=== PATIENT | female | born 1965 | race Caucasian/White ===

== ENCOUNTER 2016-08-09 15:25 | Emergency (ER) | payer BC ==
[2016-08-09] MEDS ORDERED: Diph,Pert(Acell),Tet Vac 0.5 ML SYR IM ONE (15:41)
--- NOTE | 2016-08-09 16:10 | Emergency Department Record ---
History of Present Illness - General Chief Complaint: Laceration(s) Stated Complaint: LAC ABOVE L EYE Time Seen by Provider: 08/09/16 15:38 Source: Patient, Family Mode of Arrival: Ambulatory Limitations: No limitations - History of Present Illness Initial Commments: 51 yo female presents with a laceration of the left eyebrow. She was taking the pool cover off and the bungee snapped and hit her over the left eyebrow. No eye injury. No headache. No LOC. No dizziness. Last tetanus unknown. Onset/Timin -: Minutes(s) Place: Home Context: Accidental Associated Symptoms: None - [place] Coma Scale Eye Response: (4) Open spontaneously Motor Response: (6) Obeys commands Verbal Response: (5) Oriented [place] Total: 15 - Related Data Hx Tetanus Toxoid Vaccination: Yes Patient Tetanus UTD (within 5 yrs): No Home Medications Medication Instructions Recorded Confirmed Last Taken Aspirin Chewable 81 mg PO DAILY 07/02/15 08/09/16 08/08/16 Cetirizine HCl 10 mg PO DAILY 07/02/15 08/09/16 08/08/16 Diltiazem HCl [Cardizem] 120 mg PO DAILY 07/02/15 08/09/16 08/08/16 Simvastatin [Zocor] 20 mg PO QHS 07/02/15 08/09/16 08/08/16 Nitroglycerin [Nitrostat] 0.3 mg SL ASDIR 08/09/16 08/09/16 08/02/16 Allergies Allergy/AdvReac Type Severity Reaction Status Date / Time isosorbide mononitrate Allergy ALTERED Verified 08/09/16 15:36 [From dur] MENTAL STATUS Travel Screening - Travel/Exposure Within Last 30 Days Have you traveled within the last 30 days?: No - Travel/Exposure Within Last Year Have you traveled outside the [place] in the last year?: No - Additonal Travel Details Have you been exposed to anyone with a communicable illness?: No - Travel Symptoms Symptom Screening: None Review of Systems Constitutional: Denies: Chills, Fever, Malaise, Weakness Eyes: Denies: Eye discharge, Eye pain, Photophobia, Vision change ENT: Denies: Congestion, Throat pain Respiratory: Denies: Cough Cardiovascular: Denies: Chest pain, Palpitations, Syncope Endocrine: Denies: Fatigue Gastrointestinal: Denies: Diarrhea, Nausea, Vomiting Genitourinary: Denies: Dysuria Musculoskeletal: Denies: Arthralgia, Back pain, Myalgia, Neck pain Skin: Denies: Bruising, Change in color, Rash Neurological: Reports: Headache. 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 - NEURO Hx Neuro Disorders: No - GI Hx GI Disorders: No - Hx Genitourinary Disorders: Yes Hx Kidney Stones: Yes - ENDOCRINE Hx Endocrine Disorders: No - MUSCULOSKELETAL Hx Musculoskeletal Disorders: Yes Comment:: scoliosis - PSYCH Hx Psych Problems: No - HEMATOLOGY/ONCOLOGY Hx Hematology/Oncology Disorders: No Family Medical History Any Significant Family History?: No Hx Cancer: Mother Hx Dementia: Father Hx Diabetes: Father Hx Heart Disease: Father Hx HTN: Mother Physical Exam - General General Appearance: Alert, Oriented x3, Cooperative, No acute distress Limitations: No limitations - Head Head exam: Normocephalic. negative: Atraumatic, Normal inspection Head exam detail: Laceration Image of Face/Head: 1 - 1cm liniear clean laceration of the eye brow - Eye Eye exam: Normal appearance, PERRL, EOMI. negative: Conjunctival injection, Periorbital swelling, Periorbital tenderness Pupils: Normal accommodation. negative: Irregular, Unequal - ENT ENT exam: Normal exam Ear exam: Normal external inspection Nasal Exam: Normal inspection Mouth exam: Normal external inspection Teeth exam: Normal inspection Throat exam: Normal inspection - Neck Neck exam: Normal inspection - Rectal Rectal exam: Deferred - exam: Deferred - Extremities Extremities exam: Normal inspection - Back Back exam: Reports: Full ROM - Neurological Neurological exam: Alert, Normal gait, Oriented X3. negative: CN II-XII intact - Psychiatric Psychiatric exam: Normal affect, Normal mood - Skin Skin exam: Dry, Intact, Normal color, Warm Course Vital Signs 08/09/16 15:28 Temperature 98.6 F Pulse Rate 87 Respiratory 16 Rate Blood Pressure 143/97 Pulse Ox 98 - Reevaluation(s) Reevaluation #1: Procedure Laceration Repair Betadine Prep NS irrigation Inspection with bloodless field. No FB Prolene 6-0 #4 Tolerated well. Good wound approximation We discussed home care and reasons to return for a recheck Suture removal in 5 days. 08/09/16 16:13 Disposition Disposition: Discharge Clinical Impression: Eyebrow laceration Qualifiers: Encounter type: initial encounter Laterality: left Qualified Code(s): S01.112A - Laceration without foreign body of left eyelid and periocular area, initial encounter Disposition: Home, Self-Care Condition: (1) Good Instructions: Laceration (ED) Additional Instructions: Return in 5 days for suture removal Return if you have pain, vision changes, redness, pus or concerns Forms: Patient Portal Access Time of Disposition: 16:11
== END 2016-08-09 16:17 | disposition home or self-care (01) ==
LOC: ER 15:25
DX: S01.112A Laceration without foreign body of left eyelid and periocular area, initial encounter (principal); W22.8XXA Striking against or struck by other objects, initial encounter; Y92.007 Garden or yard of unspecified non-institutional (private) residence as the place of occurrence of the external cause
CPT/HCPCS: 12011; 90715; 96372; 99283

== ENCOUNTER 2016-08-14 10:04 | Emergency (ER) | payer BC ==
--- NOTE | 2016-08-14 10:18 | Emergency Department Record ---
History of Present Illness - General Chief Complaint: Suture removal Stated Complaint: STITCHES REMOVED Time Seen by Provider: 08/14/16 10:13 - History of Present Illness Initial Comments: The patient is here for suture removal from left eyebrow which were placed 6 days ago on 08-09-16. She has had no problems. She denies concussion symptoms. MD Complaint: Suture/staple removal - Related Data Home Medications Medication Instructions Recorded Confirmed Last Taken Aspirin Chewable 81 mg PO DAILY 07/02/15 08/09/16 08/08/16 Cetirizine HCl 10 mg PO DAILY 07/02/15 08/09/16 08/08/16 Diltiazem HCl [Cardizem] 120 mg PO DAILY 07/02/15 08/09/16 08/08/16 Simvastatin [Zocor] 20 mg PO QHS 07/02/15 08/09/16 08/08/16 Nitroglycerin [Nitrostat] 0.3 mg SL ASDIR 08/09/16 08/09/16 08/02/16 Allergies Allergy/AdvReac Type Severity Reaction Status Date / Time isosorbide mononitrate Allergy ALTERED Verified 08/09/16 15:36 [From Imdur] MENTAL STATUS Review of Systems Reviewed: No additional complaints except as noted below Constitutional: Reports: As per HPI. Denies: Chills, Fever, Malaise, Night sweats, Weakness, Weight change Eyes: Reports: As per HPI. Denies: Eye discharge, Eye pain, Photophobia, Vision change ENT: Reports: As per HPI. Denies: Congestion, Dental pain, Ear pain, Epistaxis , Hearing loss, Throat pain Respiratory: Reports: As per HPI. Denies: Cough, Dyspnea, Hemoptysis, Stridor, Wheezes Cardiovascular: Reports: As per HPI. Denies: Arrhythmia, Chest pain, Dyspnea on exertion, Edema, Murmurs, Orthopnea, Palpitations, Paroxysmal nocturnal dyspnea, Rheumatic Fever, Syncope Endocrine: Reports: As per HPI. Denies: Fatigue, Heat or cold intolerance, Polydipsia, Polyuria Gastrointestinal: Reports: As per HPI. Denies: Abdominal pain, Constipation, Diarrhea, Hematemesis, Hematochezia, Melena, Nausea, Vomiting Genitourinary: Reports: As per HPI. Denies: Abnormal menses, Discharge, Dyspareunia, Dysuria, Frequency, Hematuria, Incontinence, Retention, Urgency Musculoskeletal: Reports: As per HPI. Denies: Arthralgia, Back pain, Gout, Joint swelling, Myalgia, Neck pain Skin: Reports: As per HPI. Denies: Bruising, Change in color, Change in hair/ nails, Lesions, Pruritus, Rash Neurological: Reports: As per HPI. Denies: Abnormal gait, Confusion, Headache, Numbness, Paresthesias, Seizure, Tingling, Tremors, Vertigo, Weakness Psychiatric: Reports: As per HPI. Denies: Anxiety, Auditory hallucinations, Depression, Homicidal thoughts, Suicidal thoughts, Visual hallucinations Hematological/Lymphatic: Reports: As per HPI. 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 - NEURO Hx Neuro Disorders: No - GI Hx GI Disorders: No - Hx Genitourinary Disorders: Yes Hx Kidney Stones: Yes - ENDOCRINE Hx Endocrine Disorders: No - MUSCULOSKELETAL Hx Musculoskeletal Disorders: Yes Comment:: scoliosis - PSYCH Hx Psych Problems: No - HEMATOLOGY/ONCOLOGY Hx Hematology/Oncology Disorders: No Family Medical History Hx Cancer: Mother Hx Dementia: Father Hx Diabetes: Father Hx Heart Disease: Father Hx HTN: Mother Physical Exam - General General Appearance: Alert, Oriented x3, Cooperative, No acute distress - Head Head exam: Normal inspection Head exam detail: Laceration (healed laceration above left eyebrow, no cellulitis), [place] eyes (left orbit region with older ecchymosis, no edema) - Eye Eye exam: Normal appearance, PERRL Pupils: Normal accommodation - ENT ENT exam: Normal exam, Mucous membranes moist, Normal external ear exam, Normal orophraynx Ear exam: Normal external inspection. negative: External canal tenderness Nasal Exam: Normal inspection. negative: Discharge, Sinus tenderness Mouth exam: Normal external inspection, Tongue normal Teeth exam: Normal inspection. negative: Dental caries Throat exam: Normal inspection. negative: Tonsillar erythema, Tonsillar exudate - Neck Neck exam: Normal inspection, Full ROM. negative: Tenderness - Respiratory Respiratory exam: negative: Respiratory distress - Cardiovascular Cardiovascular Exam: Regular rate, Normal rhythm - GI/Abdominal GI/Abdominal exam: Soft. negative: Tenderness - Rectal Rectal exam: Deferred - exam: Deferred - Extremities Extremities exam: Normal inspection, Full ROM, Normal capillary refill. negative: Tenderness - Back Back exam: Reports: Normal inspection, Full ROM. Denies: Muscle spasm, Rash noted, Tenderness - Neurological Neurological exam: Alert, Normal gait, Oriented X3, Reflexes normal - Psychiatric Psychiatric exam: Normal affect, Normal mood - Skin Skin exam: Dry, Intact, Normal color, Warm Medical Decision Making - Management Options MDM Management: No Additional Work-up Planned Disposition Disposition: Discharge Clinical Impression: Visit for suture removal Disposition: Home, Self-Care Condition: (1) Good Instructions: Stitches Removal (ED) Additional Instructions: Recheck with PCP only if problems. "Black and blue" around eye area should resolve in the next week. Forms: Patient Portal Access
== END 2016-08-14 10:27 | disposition home or self-care (01) ==
LOC: ER 10:04
DX: Z48.02 Encounter for removal of sutures (principal)